=== PATIENT | female | born 1995 | race Caucasian/White ===

== ENCOUNTER 2022-11-12 08:13 | Emergency (ER) | payer BC, SELFPAY ==
[2022-11-12 08:25] VITALS: BP 114/68; PULSE 62; RESP 16; TEMP 36.2; O2SAT 100
--- NOTE | 2022-11-12 08:42 | ED.URI ---
HPI - URI/Sore Throat General Chief Complaint: Upper Respiratory Infection Stated Complaint: Sore Throat History of Present Illness HPI Narrative: 27-year-old female presents for complaint of sore throat for 3 days. Endorses painful swallow. Denies cough, shortness breath, wheezing nausea vomiting, fevers chills. States her child's daycare has a few children with strep throat. And endorses her child has been fatigue. Patient has alternating Tylenol and ibuprofen. Related Data Home Medications Medication Instructions Recorded Confirmed dextroamphetamine-amphetamine ER 10 mg PO DAILY 11/12/22 11/12/22 10 mg 24hr capsule,extend release Allergies Allergy/AdvReac Type Severity Reaction Status Date / Time No Known Allergies Allergy Verified 11/12/22 08:21 Review of Systems Review of Systems: CONSTITUTIONAL: Denies body aches, fever, chills, or sweats. EYES: Denies visual changes, redness, or discharge. ENT: Reports sore throat rhinorrhea, denies congestion, or otalgia. CARDIOVASCULAR: Denies chest pain, palpitations, or edema. RESPIRATORY: Denies dyspnea. GASTROINTESTINAL: Denies abdominal pain, nausea, vomiting, or diarrhea. SKIN: Denies rash, itching, or wounds. MUSCULOSKELETAL: Denies back pain, joint pain, or myalgia. NEUROLOGIC: Denies headache PMFSH Past Medical History Medical History (Updated 11/12/22 @ 08:56 by Melissa White APRN) No pertinent past medical history Surgical History Surgical History (Updated 11/12/22 @ 08:57 by Melissa White APRN) History of tonsillectomy Exam Narrative: GENERAL: well-appearing, no acute distress. EYES: conjunctivae clear ENT: Mucous membranes moist. Ear canals with excess cerumen bilaterally; no tragal tenderness. Oropharynx not erythematous without lesions. Tonsils absent. No drooling, no hoarseness, no trismus, uvula midline. No tripod positioning, hot potato voice, or soft palate swelling. NECK: Supple. No lymphadenopathy CHEST: Clear to auscultation, breath sounds equal. No respiratory distress, speaks in full sentences. HEART: Regular rate and rhythm. No murmur heard. SKIN: Warm, dry, no rash. NEURO: Alert and oriented x3. Course Course Emergency Course: Patient is aware of diagnosis, understands and agrees to treatment plan. Anticipatory guidance given. Patient agrees to follow-up as directed and is aware of reasons to seek care at the emergency department. Portions of this record may have been created with voice recognition software Level of Care: Express Care Visit Vital Signs Vital signs: Vital Signs Temperature 97.1 F L 11/12/22 08:25 Pulse Rate 62 11/12/22 08:25 Respiratory Rate 16 11/12/22 08:25 Blood Pressure 114/68 11/12/22 08:25 Pulse Oximetry 100 11/12/22 08:25 Oxygen Delivery Room Air 11/12/22 08:25 Temperature 97.1 F L 11/12/22 08:25 Pulse Rate 62 11/12/22 08:25 Respiratory Rate 16 11/12/22 08:25 Blood Pressure 114/68 11/12/22 08:25 Pulse Oximetry 100 11/12/22 08:25 Oxygen Delivery Room Air 11/12/22 08:25 MDM - URI/Sore Throat MDM Narrative Medical decision making narrative: strep result reviewed with pt. Advise supportive treatments. Patient is appropriate for outpatient treatment and follow-up. Differential Diagnosis Differential diagnosis: Likely upper respiratory infection, otitis media, sinusitis, viral infection and pharyngitis Discharge Plan Discharge Clinical Impression: Pharyngitis Patient Disposition: Home, Self-Care Condition: Stable Instructions: Antibiotic Form, Allergies (ED) Additional Instructions: Rapid strep swab was negative today You will be notified in a few days if the culture comes back positive for strep, and appropriate antibiotics will be called in at that time. if symptoms are due to a viral illness, it is not treated with antibiotics. Viral symptoms can be present for up to 10-14 days. Recommend
== END 2022-11-12 08:55 | disposition home or self-care (01) ==
PROVIDERS: Emergency Provider Nurse Practitioner Family; PCP Internal Medicine
DX: J02.9 Acute pharyngitis, unspecified (principal)
CPT/HCPCS: 87081; 87880; 99213; G0463